=== PATIENT | male | born 1995 | race Caucasian/White ===

== ENCOUNTER 2018-05-20 20:28 | Emergency (ER) | payer OTHER ==
[~2018-05-20] VITALS: Ht 175.3 cm; Wt 74.8 kg
[~2018-05-20 20:28] MED LIST: TESSALON PERLE100 MG PO; VENTOLIN HFA 1818 GM INH
[2018-05-20] MEDS ORDERED: BENADRYL25 MG PO (20:44)
[2018-05-20] MEDS ORDERED: CLARITIN10 MG PO (20:44)
[2018-05-20] MEDS ORDERED: VENTOLIN HFA 1818 GM INH (20:45)
[2018-05-20 20:59] LABS: URINE BILIRUBIN NEGATIVE (Negative); URINE BLOOD NEGATIVE (Negative); URINE CLARITY CLEAR; URINE COLOR YELLOW; URINE GLUCOSE-RANDOM* NEGATIVE (Negative); URINE KETONES NEGATIVE (Negative); URINE LEUKOCYTES-REFLEX NEGATIVE (Negative); URINE NITRITE-REFLEX NEGATIVE (Negative); URINE PROTEIN (DIPSTICK) NEGATIVE (Negative); URINE SPECIFIC GRAVITY 1.025 (1.005-1.035); URINE UROBILINOGEN 0.2 E.U./dl (0.2-1.0)
[2018-05-20 21:14] LABS: ABSOLUTE NEUTROPHILS 4.8 thou/uL (1.4-8.2); BASOPHILS 0.6 % (0.0-2.0); EOSINOPHILS 3.4 % (0.0-3.0); HEMATOCRIT 41.5 % (42.0-52.0); HEMOGLOBIN 14.6 gm/dL (14.0-18.0); LYMPHOCYTES 25.1 % (24.0-44.0); MCH 29.7 pg (26.0-34.0); MCHC 35.2 g/dL (28.0-37.0); MCV 84.3 fL (80.0-100.0); MONOCYTES 6.9 % (1.0-8.0); PLATELET COUNT 221 thou/uL (150-400); RBC 4.92 mil/uL (4.50-6.00); RDW 12.3 % (10.5-14.5); WBC 7.5 thou/uL (4.0-11.0)
[2018-05-20 21:22] LABS: CALCIUM 8.9 mg/dL (8.5-10.1); POTASSIUM 3.9 mmol/L (3.5-5.1)
[2018-05-20 21:27] LABS: ALBUMIN 4.3 g/dL (3.4-5.0); TOTAL BILIRUBIN 1.4 mg/dL (<0.1-1.0); TOTAL PROTEIN 7.9 g/dL (6.4-8.2)
[2018-05-20] MEDS ORDERED: PHENERGAN 25 MG25 M1 PO (22:18)
[2018-05-20 22:41] VITALS: BP 128/77
== END 2018-05-20 22:41 | disposition home or self-care (01) ==
LOC: ER 20:28
PROVIDERS: Physician Assistant
DX: R11.2 Nausea with vomiting, unspecified (principal); R31.9 Hematuria, unspecified; R35.0 Frequency of micturition; R30.0 Dysuria; J45.909 Unspecified asthma, uncomplicated; Z91.041 Radiographic dye allergy status

== ENCOUNTER 2019-04-30 21:20 | Emergency (ER) | payer OTHER ==
[~2019-04-30] VITALS: Ht 175.3 cm; Wt 65.8 kg
[~2019-04-30 21:20] MED LIST changes: +BENADRYL25 MG PO; +CLARITIN10 MG PO; +PHENERGAN 25 MG25 M1 PO
[2019-04-30 22:08] VITALS: BP 131/45
== END 2019-04-30 22:17 | disposition home or self-care (01) ==
LOC: ER 21:20
DX: S61.216A Laceration without foreign body of right little finger without damage to nail, initial encounter (principal); Z91.041 Radiographic dye allergy status; W22.8XXA Striking against or struck by other objects, initial encounter; Y93.G1 Activity, food preparation and clean up; Y92.89 Other specified places as the place of occurrence of the external cause; Y99.8 Other external cause status